=== PATIENT | female | born 1950 | race Caucasian/White ===

== ENCOUNTER 2020-04-01 19:22 | Emergency (ER) | payer MEDICARE, MEDICAID, SELFPAY ==
--- NOTE | ~2020-04-01 | XR_ITS ---
EXAMINATION: XR chest 1V portable 04/01/2020 20:38 INDICATION: Shortness of breath and cough PROCEDURE: 2 view chest COMPARISON: No prior studies for comparison. FINDINGS: The lungs are clear. The cardiomediastinal silhouette is within normal limits. There are no pleural effusions. There is no pneumothorax suspected. IMPRESSION: 1: NO ACUTE CARDIOPULMONARY DISEASE. Reviewed, dictated and finalized at location A. SALES AGENT
--- NOTE | 2020-04-01 19:26 | ED.SOB ---
HPI - SOB/Dyspnea General Chief Complaint: Shortness of Breath/Dyspnea Stated Complaint: cough, SOB Time Seen by Provider: 04/01/20 19:26 History of Present Illness HPI Narrative: Producative cough and PARKS for the past 2 days. This is associated with fatigue. She had a negative rapid COVID test done earlier today. She is on albuterol PRN at baseline. Related Data Home Medications Medication Instructions Recorded Confirmed tramadol 50 mg tablet 50 mg PO Q6H PRN tablet 02/29/20 Allergies Allergy/AdvReac Type Severity Reaction Status Date / Time gluten Allergy Unknown Unknown Verified 04/01/20 19:34 Penicillins Allergy Unknown Unknown Verified 04/01/20 19:34 phenytoin Allergy Unknown Unknown Verified 04/01/20 19:34 Review of Systems Review of Systems: All systems reviewed & are unremarkable except as noted in HPI and below Constitutional: Constitutional: Reports fatigue and Denies fever(s) Cardiovascular: Cardiovascular: Reports chest pain Respiratory: Respiratory: Reports chest congestion, Reports cough and Reports dyspnea Gastrointestinal: Gastrointestinal: Denies abdominal pain, Denies nausea and Denies vomiting Genitourinary: Genitourinary: Denies dysuria Neurologic: Denies dizziness and Denies weakness [facility] Past Medical History Medical History AK (actinic keratosis) Bipolar II disorder with atypical features CAD (coronary artery disease) Cataract of both eyes Chronic idiopathic constipation Chronic rhinitis Generalized anxiety disorder Irritable bowel syndrome with constipation Lumbar spondylosis Mixed hyperlipidemia Narcissistic personality disorder Organic brain syndrome Osteoporosis, unspecified Other specified types of schizophrenia, unspecified condition Paroxysmal atrial tachycardia Primary osteoarthritis involving multiple joints Primary osteoarthritis, unspecified site Restless legs syndrome Seborrheic keratosis Type 2 diabetes mellitus with complication, without long-term current use of insulin Vitamin D deficiency, unspecified Xeroderma Family History Family History Other Diabetes mellitus Family history of arthritis Family history of cardiovascular disease Hypertension Social History Social History Smoking status: Current every day smoker Alcohol intake: never Exam Const: General: healthy appearing, no acute distress and alert Orientation/consciousness: patient oriented x3 HENMT: Head: normal to inspection Neck: Neck: normal visual inspection Chest: Chest palpation & inspection: normal inspection of the chest and no tenderness Resp: Effort & Inspection: normal respiratory effort Auscultation: rhonchi (Minimal) Cardio: Rate: regular rate Rhythm: regular rhythm Skin: General skin exam: normal color Neuro: General: patient oriented x3, moves all extremities and CN's II-XI intact bilaterally Speech: normal speech Extrem: General: normal to inspection and no edema Course Vital Signs Vital signs: Vital Signs Temperature 36.9 C 04/01/20 19:28 Pulse Rate 86 04/01/20 19:28 Respiratory Rate 14 04/01/20 19:28 Blood Pressure 149/86 H 04/01/20 19:28 Pulse Oximetry 95 04/01/20 19:28 Temperature 36.9 C 04/01/20 19:28 Pulse Rate 82 04/01/20 21:48 Respiratory Rate 20 04/01/20 21:48 Blood Pressure 149/86 H 04/01/20 19:28 Pulse Oximetry 95 04/01/20 19:28 MDM - SOB/Dyspnea Differential Diagnosis Differential diagnosis: Likely acute exacerbation of chronic obstructive airways disease, congestive heart failure and community acquired pneumonia Medical Records Attestation: I reviewed the patient's medical records. Lab Data Attestation: I reviewed the patient's lab results. Result diagrams: 04/01/20 20:45 04/01/20 20:45 Labs: Lab R
[2020-04-01 19:28] VITALS: BP 149/86; PULSE 86; RESP 14; TEMP 36.9; O2SAT 95
[2020-04-01 20:51] LABS: Basophils Absolute Auto 0.1 K/mm3 (0.0-0.1); Basophils Percent Auto 0.7 % (0.2-1.2); Eosinophils Absolute Auto 0.2 K/mm3 (0-0.3); Eosinophils Percent Auto 2.1 % (0-4.4); Hematocrit 43.6 % (37.0-47.0); Hemoglobin 14.5 g/dL (12.0-15.0); Immature Granulocyte Absolute 0.02 K/mm3 (0.00-0.031); Immature Granulocyte Percent A 0.2 % (0-0.5); Lymphocytes Absolute Auto 3.98 K/mm3 (0.9-3.2); Lymphocytes Percent Auto 43.3 % (18.3-44.2); Mean Corpuscular HGB Conc 33.3 g/dl (32-36); Mean Corpuscular Hemoglobin 32.3 pg (26-34); Mean Corpuscular Volume 97.1 fl (80-100); Monocytes Absolute Auto 0.9 K/mm3 (0.1-0.6); Monocytes Percent Auto 9.2 % (2.6-8.5); Neutrophils Absolute Auto 4.1 K/mm3 (1.3-6.7); Neutrophils Percent Auto 44.5 % (45.5-73.1); Platelet Count Result 186 k/mm3 (150-375); Red Blood Count 4.49 M/mm3 (4.2-5.4); Red Cell Distribution Width 12.4 % (11.5-14.5); White Blood Count 9.2 K/mm3 (4.5-10.0)
[2020-04-01 21:03] LABS: Anion Gap 8 mmol/L (8-16); Blood Urea Nitrogen 15 mg/dL (7-17); Calcium 10.2 mg/dL (8.4-10.2); Carbon Dioxide 26 mmol/L (22-30); Chloride 105 mmol/L (98-107); Estimated CRCL calculation 84 ml/min; Estimated Glomerular Filt Rate > 60; Glucose 163 mg/dL (65-105); Potassium 4.3 mmol/L (3.4-5.0); Sodium 139 mmol/L (137-145)
[2020-04-01] MEDS: ALBUTEROL SULFATE NEB 2.5 MG/0.5 ML INH 5 MG INHALATION (21:46)
[2020-04-01 21:47] VITALS: PULSE 82; RESP 20
[2020-04-01] MEDS: IPRATROPIUM BR 0.02% INH SOLN 0.5 MG/2.5 ML VIAL INHALATION (21:47)
[2020-04-01 21:48] VITALS: PULSE 82; RESP 20
[2020-04-01 21:57] VITALS: PULSE 82; RESP 26
--- NOTE | 2020-04-01 22:10 | PC.NURSE ---
Called [facility] to transport patient back to facility...ETA 01:00 Trip #[id number]
--- NOTE | 2020-04-02 | PC.NURSE ---
Called [facility] and gave report to Nurse on duty. She stated they dont have transport available to bring patient back to facility. Awaiting ambulance at this time.
--- NOTE | 2020-04-02 01:02 | PC.NURSE ---
CALLED [facility] FOR STATUS TO TRANSPORT TO [facility]....ETA 03:45
[2020-04-02 01:18] VITALS: BP 178/88; PULSE 78; RESP 16; TEMP 36.6; O2SAT 96
[2020-04-02] MEDS: traMADol HCL (*CRX) 50 MG TABLET PO (01:48)
--- NOTE | 2020-04-02 02:58 | PC.NURSE ---
Called [facility] for update on ETA...07:30
[2020-04-02 04:56] VITALS: BP 145/114; PULSE 94; RESP 20; TEMP 37.1; O2SAT 95
--- NOTE | 2020-04-02 06:50 | PC.NURSE ---
Pt attempted to get out of bed. States she wants to leave. Sitter placed at bedside.
--- NOTE | 2020-04-02 07:54 | PC.NURSE ---
renetta rogers. here to transport pt back to [facility]. [id number]
[2020-04-02 07:59] VITALS: BP 136/81; PULSE 84; RESP 18; O2SAT 96
== END 2020-04-02 08:00 ==
PROVIDERS: Emergency Provider Emergency Medicine; PCP Internal Medicine
DX: J20.9 Acute bronchitis, unspecified (principal); I25.10 Atherosclerotic heart disease of native coronary artery without angina pectoris; K58.1 Irritable bowel syndrome with constipation; E78.2 Mixed hyperlipidemia; M81.0 Age-related osteoporosis without current pathological fracture; G25.81 Restless legs syndrome; E11.9 Type 2 diabetes mellitus without complications; E55.9 Vitamin D deficiency, unspecified; F17.200 Nicotine dependence, unspecified, uncomplicated; H26.9 Unspecified cataract
CPT/HCPCS: 36415; 71045; 80048; 85025; 87804; 94640; 99284; A9270

== ENCOUNTER 2020-04-11 11:05 | Outpatient (NON) | payer MEDICARE, SELFPAY ==
[2020-04-11 11:24] LABS: Anion Gap 9 mmol/L (8-16); Blood Urea Nitrogen 9 mg/dL (7-18); Calcium 10.2 mg/dL (8.5-10.1); Carbon Dioxide 28 mmol/L (21-32); Chloride 105 mmol/L (98-108); Estimated Glomerular Filt Rate > 60; Glucose 131 mg/dL (70-99); Osmolality Calculated 294 mOsm/kg (285-295); Potassium 3.8 mmol/L (3.5-5.1); Sodium 142 mmol/L (136-145)
== END 2020-04-11 11:06 ==
LOC: CHSLAB 11:08
PROVIDERS: Visit Provider Internal Medicine
DX: I47.9 Paroxysmal tachycardia, unspecified (principal)
CPT/HCPCS: 36415; 80048

== ENCOUNTER 2020-06-08 12:34 | Outpatient (NON) | payer MEDICARE, SELFPAY ==
[2020-06-08 13:14] LABS: Basophils Absolute Auto 0.05 K/mm3 (0.00-0.10); Basophils Percent Auto 0.6 % (0.0-1.0); Eosinophils Absolute Auto 0.11 K/mm3 (0.02-0.50); Eosinophils Percent Auto 1.2 % (1.0-6.0); Hematocrit 42.9 % (35.0-42.0); Hemoglobin 13.8 g/dL (11.7-13.8); Immature Granulocyte Absolute 0.02 K/mm3 (0.00-0.00); Immature Granulocyte Percent A 0.2 % (0.0-0.0); Lymphocytes Absolute Auto 2.95 K/mm3 (1.10-4.50); Lymphocytes Percent Auto 32.5 % (18.0-42.0); Mean Corpuscular HGB Conc 32.2 g/dL (32.0-36.0); Mean Corpuscular Hemoglobin 31.5 pg (27.0-31.0); Mean Corpuscular Volume 97.9 fL (78.0-102.0); Mean Platelet Volume 12.1 fl (9.2-11.8); Monocytes Absolute Auto 0.75 K/mm3 (0.10-0.90); Monocytes Percent Auto 8.3 % (2.0-11.0); Neutrophils Absolute Auto 5.2 K/mm3 (1.7-7.2); Neutrophils Percent Auto 57.2 % (50.0-70.0); Platelet Count Result 182 K/mm3 (150-420); Red Blood Count 4.38 M/mm3 (4.20-5.40); Red Cell Distribution Width 12.2 % (11.6-14.4); White Blood Count 9.1 K/mm3 (4.8-10.8)
[2020-06-08 13:32] LABS: Alanine Aminotransferase 49 U/L (14-59); Albumin Level 3.1 g/dL (3.4-5.0); Alkaline Phosphatase 82 U/L (46-116); Anion Gap 9 mmol/L (8-16); Aspartate Amino Transferase 43 U/L (15-37); Bilirubin,Total 0.6 mg/dL (0.00-1.00); Blood Urea Nitrogen 12 mg/dL (7-18); Carbon Dioxide 26 mmol/L (21-32); Chloride 102 mmol/L (98-108); Estimated Glomerular Filt Rate > 60; Glucose 277 mg/dL (70-99); Magnesium 1.5 mg/dL (1.8-2.4); Osmolality Calculated 293 mOsm/kg (285-295); Phosphorus 2.6 mg/dL (2.6-4.7); Potassium 4.5 mmol/L (3.5-5.1); Sodium 137 mmol/L (136-145); Total Protein 6.4 g/dL (6.4-8.2)
== END 2020-06-08 12:35 ==
LOC: CHSLAB 12:36
PROVIDERS: Visit Provider Internal Medicine
DX: R60.9 Edema, unspecified (principal); R53.83 Other fatigue
CPT/HCPCS: 36415; 80053; 83735; 84100; 84443; 85025